=== PATIENT | male | born 1985 | race Caucasian/White ===

== ENCOUNTER 2017-07-18 23:52 | Emergency (ER) | payer BC ==
[2017-07-19 00:03] VITALS: BP 155/80; BMI 55.9
--- NOTE | 2017-07-19 00:17 | DR.GENAD ---
HPI - PCP Primary Care Physician: HERMINIO - HPI Comment HPI Comment: HAPPEN 07/17/2017. SWELLING AND PAIN SINCE WITH DECREASE WEIGHT BEARING. - Complaint/Symptoms Chief Complaint Doctors Comments: LEFT KNEE INJURY TWISTED FROM A FALL. Chief Complaint:: LEFT KNEE PAIN Self Treatment fo Chief Complaint: HOME MEDS: TRAMADOL, FLEXERIL, XANAX - Nurses notes reviewed Nurses Notes Review: Yes - Source History Provided: Patient - Mode of Arrival Mode of Arrival: Ambulatory - Timing Onset of Chief Complaint: 07/17/17 Came on: Suddenly - Duration Duration: Constant Duration: Days - Severity Severity: Moderate PMH - PMH Past Medical History: Yes Past Medical History: Anxiety, Arthritis, Dyslipidemia, Hypertension Past Surgical History: No - Family History History of Family Medical Conditions: No - Social History Does patient currently use any type of tobacco product: Yes Have you used tobacco products in the last 12 months: Yes Type of Tobacco Use: Cigarettes Alcohol Use: None Do you use any recreational Drugs:: No Lives With: Spouse Lives Where: Home - infectious screening In the last 2 months have you had wt loss of >10#?: NO Have you had fever, night sweats or hemotysis?: No Have you traveled outside the country in the last 6 months?: No Isolation: Standard ROS - Review of Systems Constitutional: No Symptoms Reported Eyes: No Symptoms Reported ENTM: No Symptoms Reported Respiratoy: No Symptoms Reported Cardiovascular: No Symptoms Reported Gastrointestinal/Abdominal: No Symptoms Reported Genitourinary: No Symptoms Reported Neurological: No Symptoms Reported Musculoskeletal: Joint Swelling, Muscle Pain, Left, Knee Integumentary: No Symptoms Reported Hematologic/Lymphatic: No Symptoms Reported Endocrine: No Symptoms Reported All Other Systems: Reviewed and Negative PE - Vital Signs Vitals: Temperature 98.3 F Pulse Rate 71 Respiratory Rate 18 Blood Pressure 155/80 O2 Sat by Pulse Oximetry 97 - General Limitations: No Limitations General Appearance: Alert - Head Head Exam: Normal Inspection - Eyes Eye exam: Normal Appearance - ENT ENT Exam: Normal External Ear Exam External Ear Exam: Normal External Inspection - Neck Neck Exam: Trachea Midline - Chest Chest Inspection: Symmetric Chest Wall Rise - Respiratory Respiratory Exam: Normal Lung Sounds Bilat Respiratory Exam: Bilateral Clear to Auscultation - Cardiovascular Cardiovascular Exam: Regular Rate, Normal Rhythm, Normal Heart Sounds - Abdominal Exam Abdominal Exam: Normal Bowel Sounds, Soft. negative: Tenderness - Extremities Extremities Exam: Tenderness (LEFT KNEE), Joint Swelling (LEFT KNEE SWOLLEN.). negative: Full ROM (DECRASE ROM.) - Back Back Exam: Paraspinal Tenderness (LOWER BACK) - Neurologic Neurological Exam: Alert, Oriented X3, CN II-XII Intact, Normal Gait, Reflexes Normal. negative: Motor Sensory Deficit - Psychiatric Psychiatric Exam: Normal Affect, Normal Mood - Skin Skin Exam: Erythema MDM - Additional Information Additional Information Obtained From: Family - Differential Diagnosis Differential Diagnosis: LEFT KNEE FRACTURE, SPRAIN AND CONTUSION. Course - Treatment Treatment: SEE REPORT. IM TORADOL AND NORFLEX IN ED. - Reevaluation 1st: Improved (PAIN DECREASING.) - Education/Counseling Education/Counseling: Patient, Family, Education Educated On: Treatment, Diagnosis, Needs for Follow Up ROR - XRAY XRAY Interpreted by: Self XRAY Findings: NEGATIVE XRAY DISCUSS WITH PATIENT. - Diagnosis Discharge Problem: Left knee sprain Qualifiers: Encounter type: initial encounter Involved ligament of knee: unspecified ligament Qualified Code(s): S83.92XA - Sprain of unspecified site of left knee, initial encounter - Discharge Plan Condition: Stable Prescriptions: Methylprednisolone Dosepak 4Mg [MEDROL DOSEPAK (4 mg tab x 21)] 1 maye PO ONCE # 1 maye - Follow ups/Referrals Follow ups/Referrals: TAMERA DURHAM [Primary Care Provider] - 3 days - Instructions Instructions: Knee Pain, [id number] Additional Instructions: RETURN TO ED IF WORSE. YOU ALSO HAVE KNEE SPRAIN.
[2017-07-19] MEDS ORDERED: TORADOL 60 MG VIAL IM ONE (00:28)
[2017-07-19] MEDS ORDERED: TORADOL 60 MG VIAL ONE (00:32)
--- NOTE | 2017-07-19 03:50 | RAD ---
Left knee, three views Indication: Knee pain after twisting injury Findings: There is a small joint effusion. No acute cortical disruption or malalignment identified. T here is an 8 mm bony excrescence projecting from the posterior proximal tibia, seen on the lateral vi ew. Impression: No acute left knee fracture or subluxation identified. Small joint effusion. Subcentimeter bony excrescence along the posterior proximal tibia, possibly small osteochondroma. Reported By:
== END 2017-07-19 01:45 | disposition home or self-care (01) ==
LOC: ER 23:52
DX: S83.92XA Sprain of unspecified site of left knee, initial encounter (principal); W19.XXXA Unspecified fall, initial encounter; Y92.9 Unspecified place or not applicable
CPT/HCPCS: 73564; 96372; 99282; J1885